=== PATIENT | female | born 1945 | race Hispanic/Latino ===

== ENCOUNTER 2017-08-09 01:00 | Emergency (ER) | payer OTHER, SELFPAY ==
[2017-08-09] MEDS ORDERED: NA CHLORIDE 0.9% 500 ML ONE (01:37)
[2017-08-09 02:03] LABS: Absolute Lymphocytes (CBC) 1.1 K/uL (0.7-4.9); Absolute Monocytes 0.5 K/uL (0.1-1.3); Absolute Neutrophil 15.7 K/uL (1.8-8.0); Basophils % 0.4 % (0-1.3); Eosinophils % 0.3 % (0-4.4); Lymphocytes % 6.4 % (15.3-44.8); MCH 28.6 pg (27.0-35.0); MCV 86.5 fL (80-100); MPV 9.1 fL (7.6-11.3); Monocytes % 2.7 % (3.3-12.3); RBC Red Blood Cell Count 4.74 M/uL (3.86-4.86)
[2017-08-09 02:04] LABS: Bicarbonate 24 mEq/L (21-31); Glucose Level 226 mg/dL (65-120); Potassium 3.8 mEq/L (3.6-5.0); Sodium Level 134 mEq/L (135-145)
[2017-08-09 02:05] LABS: BUN Blood Urea Nitrogen 23 mg/dL (6-20)
[2017-08-09 03:29] LABS: Urine Blood TRACE (NEG); Urine Glucose 1+ (NEG); Urine Protein NEGATIVE (NEG); Urine pH 5.5 (5.0-7.0)
[2017-08-09 03:33] LABS: Urine Bacteria <20 /HPF (<20); Urine Culture Reflex Order REFLEXED; Urine RBC <5 /HPF (NONE SEEN)
[2017-08-09 03:35] LABS: Blood Morphology Comment NOT SEEN (NOT SEEN); Platelet Estimate ADEQ
--- NOTE | 2017-08-09 05:30 | ER ---
Nurse's Notes [facility] Name: Mariia Egan Age: 71 yrs Sex: Female : 1945 Arrival Date: 08/09/2017 Time: 01:00 Bed 19 Private MD: Diagnosis: Hypertension;Proctitis/Colitis Presentation: 08/09 01:10 Presenting complaint: Patient states: She started feeling weak about an hour ago, ea reports she took her blood pressure at home and noticed it was 197/ 90 and then started to get a headache, pt reports her blood sugar was high as well. Patient reports she took her lovastatin, lisinopril and metformin before coming to the ER. Transition of care: patient was not received from another setting of care. Onset of symptoms was August 09, 2017. Initial Sepsis Screen: Does the patient meet any 2 criteria? HR > 90 bpm. Does the patient have a suspected source of infection? No. Patient's initial sepsis screen is negative. Care prior to arrival: Medication(s) given: pt reports taking metformin, lovastatin and lisinopril. 01:10 Method Of Arrival: Wheelchair ea 01:10 Acuity: JUAN 3 ea Triage Assessment: 01:22 General: Appears uncomfortable, Behavior is cooperative, anxious. Pain: Complains of ea pain in headache neck Pain currently is 6 out of 10 on a pain scale. Is intermittent. EENT: No signs and/or symptoms were reported regarding the EENT system. Neuro: Level of Consciousness is awake, alert, obeys commands, Oriented to person, place, time, situation. Cardiovascular: Heart tones S1 S2 present. Respiratory: Airway is patent Respiratory effort is even, unlabored, Respiratory pattern is regular, symmetrical, Breath sounds are clear bilaterally. GI: Abdomen is non-distended. GI: No signs and/or symptoms were reported involving the gastrointestinal system. : No signs and/or symptoms were reported regarding the genitourinary system. Derm: Skin is pink, warm \T\ dry. Historical: - Allergies: : No Known Allergies; ea - Home Meds: :20 lisinopril 5 mg Oral tab 1 tab once daily [Active]; lovastatin 10 mg Oral tab 1 tab ea once daily [Active]; metformin 500 mg Oral tab 1 tab [Active]; - PMHx: 01:20 cervical cancer; Diabetes - NIDDM; Hyperlipidemia; Hypertension; ea - PSHx: 01:20 None; ea - Immunization history:: Adult Immunizations up to date. - Social history:: Smoking status: Patient/guardian denies using tobacco. - Family history:: not pertinent. - Hospitalizations: : No recent hospitalization is reported. Screenin:25 Abuse screen: Denies threats or abuse. Nutritional screening: No deficits noted. ea Tuberculosis screening: No symptoms or risk factors identified. Fall Risk None identified. Assessment: 01:50 Reassessment: Pt taken to CT. ea 02:24 Reassessment: Patient and/or family updated on plan of care and expected duration. Pain ea level reassessed. Patient is alert, oriented x 3, equal unlabored respirations, skin warm/dry/pink. 03:23 Reassessment: Patient and/or family updated on plan of care and expected duration. Pain ea level reassessed. Patient is alert, oriented x 3, equal unlabored respirations, skin warm/dry/pink. 04:07 Reassessment: Pt taken to CT. ea 04:43 Reassessment: Patient and/or family updated on plan of care and expected duration. Pain ea level reassessed. Patient is alert, oriented x 3, equal unlabored respirations, skin warm/dry/pink. 05:26 Reassessment: Patient and/or family updated on plan of care and expected duration. Pain ea level reassessed. Patient is alert, oriented x 3, equal unlabored respirations, skin warm/dry/pink. Patient denies pain at this time. Patient states feeling better. 05:39 Reassessment: pt informed that it will take about 1 hour for IV antibiotic infusion to ak1 complete before being discharged. will continue to monitor. . 06:50 Reassessment: Patient and/or family updated on plan of care and expected duration. Pain ea level reassessed. Patient is alert, oriented x 3, equal unlabored respirations, skin warm/dry/pink. Discharge instructions given to patient, verbalized the understanding of instruction. Patient denies pain at this time. Patient states feeling better. Vital Signs: 01:10 BP 176 / 68; Pulse 122; Resp 18 S; Temp 99.8; Pulse Ox 97% on R/A; Weight 57.15 kg; ea Height 5 ft. (152.40 cm); Pain 0/10; 02:23 BP 108 / 63; Pulse 81; Resp 18; Pulse Ox 100% on R/A; ea 03:24 BP 130 / 58; Pulse 78; Resp 18 S; Pulse Ox 99% on R/A; ea 04:52 BP 123 / 54; Pulse 100; Resp 18 S; Temp 98.9(O); Pulse Ox 96% on R/A; ea 05:59 BP 107 / 58; Pulse 96; Resp 18; Pulse Ox 97% on R/A; ea 01:10 Body Mass Index 24.61 (57.15 kg, 152.40 cm) ea ED Course: 01:00 Patient arrived in ED. ds1 01:10 Fabien Murphy MD is Attending Physician. rn 01:14 Cari Leslie RN is Primary Nurse. ea 01:19 Triage completed. ea 01:25 Patient has correct armband on for positive identification. Bed in low position. Call ea light in reach. Side rails up X 1. 01:25 Arm band placed on right wrist. Patient placed in an exam room, on a stretcher, on ea pulse oximetry. 01:38 X-ray completed. Portable x-ray completed in exam room. Patient tolerated procedure kw well. 01:39 XRAY Chest (1 view) In Process Unspecified. EDMS 02:12 CT Head Brain wo Cont In Process Unspecified. EDMS 04:25 CT Abd/Pelvis - W/Contrast In Process Unspecified. EDMS 06:51 No provider procedures requiring assistance completed. IV discontinued, intact, ea bleeding controlled, No redness/swelling at site. Pressure dressing applied. Administered Medications: 01:40 Drug: NS 0.9% 500 ml Route: IV; Rate: bolus; Site: right antecubital; ea 02:30 Follow up: Response: No adverse reaction; IV Status: Completed infusion ea 05:39 Drug: Cipro 400 mg Volume: 200 ml; Route: IVPB; Infused Over: 60 mins; Site: right ak1 antecubital; 06:45 Follow up: Response: No adverse reaction; IV Status: Completed infusion ea 05:39 Drug: Flagyl 500 mg Volume: 100 ml; Route: IVPB; Rate: 200 ml/hr; Infused Over: 30 ak1 mins; Site: right antecubital; 06:36 Follow up: IV Status: Completed infusion ak1 06:45 Follow up: Response: No adverse reaction; IV Status: Completed infusion ea Point of Care Testing: Blood Glucose: 02:21 Blood Glucose: 208 mg/dL; ea 02:21 Pt reports her blood sugar at home was 297 ea Ranges: Outcome: 05:30 Discharge ordered by . rn 06:51 Discharged to home ambulatory, with family. ea 06:51 Condition: improved 06:51 Discharge instructions given to patient, Instructed on discharge instructions, follow up and referral plans. medication usage, Demonstrated understanding of instructions, follow-up care, medications, Prescriptions given X 2. 06:53 Patient left the ED. ea Addendum: 08/12/2017 14:59 Addendum: Culture Results: Positive urine culture. Patient was not prescribed i w antibiotics at discharge. Report given to FIDEL for further evaluation and then to culinary artist for follow up with patient. Phone call Attempt #1 pt did not answer, left voice mail. 08/13/2017 08:50 Addendum: Other pt called back, feeling better, no urinary symptoms. i w Signatures: Dispatcher Ondax [facility] MoeGeraldine dye ds1 Cesilia Jordan, RN ARIADNE Fabien Murphy MD MD rn Whitley, Kimberlee kw Krenek, Amber, RN RN ak1 Cari Leslie RN RN ea Corrections: (The following items were deleted from the chart) 08/09 05:26 05:26 Reassessment: Patient and/or family updated on plan of care and expected ea duration. Pain level reassessed. Patient is alert, oriented x 3, equal unlabored respirations, skin warm/dry/pink. Mother remains at bedside. ea
--- NOTE | 2017-08-09 05:30 | EDPHYS ---
Physician Documentation [facility] Name: Mariia Egan Age: 71 yrs Sex: Female : 1945 Arrival Date: 08/09/2017 Time: 01:00 Bed 19 Private MD: ED Physician Fabien Murphy HPI: 08/09 01:23 This 71 yrs old Female presents to ER via Wheelchair with complaints of High rn Blood Pressure. 01:23 The patient has elevated blood pressure and discovered this at home. Onset: The rn symptoms/episode began/occurred just prior to arrival. Associated signs and symptoms: Pertinent positives: headache, lightheadedness. Severity of symptoms: At its worst the blood pressure was moderate, in the emergency department the blood pressure is improved. The patient has experienced similar episodes in the past. Reports high blood pressure, states was feeling weak, checked BP was high, made her anxious because BP was high, took extra lisinopril, had a headache begin, then BP didn't improve after 30 min so came in here. Denies current headache, vision changes, chest pain/sob/abd pain/vomiting/diarrhea. . Historical: - Allergies: :30 No Known Allergies; ea - Home Meds: 01:20 lisinopril 5 mg Oral tab 1 tab once daily [Active]; lovastatin 10 mg Oral tab 1 tab ea once daily [Active]; metformin 500 mg Oral tab 1 tab [Active]; - PMHx: 01:20 cervical cancer; Diabetes - NIDDM; Hyperlipidemia; Hypertension; ea - PSHx: 01:20 None; ea - Immunization history:: Adult Immunizations up to date. - Social history:: Smoking status: Patient/guardian denies using tobacco. - Family history:: not pertinent. - Hospitalizations: : No recent hospitalization is reported. ROS: 01:23 Constitutional: Negative for fever, chills, and weight loss, Eyes: Negative for injury, rn pain, redness, and discharge, Neck: Negative for injury, pain, and swelling, Cardiovascular: Negative for chest pain, palpitations, and edema, Respiratory: Negative for shortness of breath, cough, wheezing, and pleuritic chest pain, Abdomen/GI: Negative for abdominal pain, nausea, vomiting, diarrhea, and constipation, Back: Negative for injury and pain, MS/Extremity: Negative for injury and deformity, Skin: Negative for injury, rash, and discoloration, Neuro: Negative for numbness, tingling, and seizure. Exam: 01:23 Constitutional: This is a well developed, well nourished patient who is awake, alert, rn very anxious Head/Face: Normocephalic, atraumatic. Eyes: Pupils equal round and reactive to light, extra-ocular motions intact. Lids and lashes normal. Conjunctiva and sclera are non-icteric and not injected. Cornea within normal limits. Periorbital areas with no swelling, redness, or edema. Neck: Trachea midline, no thyromegaly or masses palpated, and no cervical lymphadenopathy. Supple, full range of motion without nuchal rigidity, or vertebral point tenderness. No Meningismus. Cardiovascular: tachycardic, regular, no murmur Respiratory: Lungs have equal breath sounds bilaterally, clear to auscultation and percussion. No rales, rhonchi or wheezes noted. No increased work of breathing, no retractions or nasal flaring. Abdomen/GI: Soft, non-tender, with normal bowel sounds. No distension or tympany. No guarding or rebound. No evidence of tenderness throughout. MS/ Extremity: Pulses equal, no cyanosis. Neurovascular intact. Full, normal range of motion. Equal circumference. Neuro: Awake and alert, GCS 15, oriented to person, place, time, and situation. Cranial nerves II-XII grossly intact. Motor strength 5/5 in all extremities. Sensory grossly intact. Vital Signs: 01:10 BP 176 / 68; Pulse 122; Resp 18 S; Temp 99.8; Pulse Ox 97% on R/A; Weight 57.15 kg; ea Height 5 ft. (152.40 cm); Pain 0/10; 02:23 BP 108 / 63; Pulse 81; Resp 18; Pulse Ox 100% on R/A; ea 03:24 BP 130 / 58; Pulse 78; Resp 18 S; Pulse Ox 99% on R/A; ea 04:52 BP 123 / 54; Pulse 100; Resp 18 S; Temp 98.9(O); Pulse Ox 96% on R/A; ea 05:59 BP 107 / 58; Pulse 96; Resp 18; Pulse Ox 97% on R/A; ea 01:10 Body Mass Index 24.61 (57.15 kg, 152.40 cm) ea MDM: 01:11 Patient medically screened. rn 05:29 Differential diagnosis: hypertensive crisis, Malignant HTN. Data reviewed: vital signs, rn nurses notes, lab test result(s), radiologic studies, CT scan, and as a result, I will discharge patient. Counseling: I had a detailed discussion with the patient and/or guardian regarding: the historical points, exam findings, and any diagnostic results supporting the discharge/admit diagnosis, lab results, radiology results, the need for outpatient follow up, to return to the emergency department if symptoms worsen or persist or if there are any questions or concerns that arise at home. Response to treatment: the patient's symptoms have markedly improved after treatment, and as a result, I will discharge patient. Special discussion: Based on the patient's Hx, exam, and Dx evaluation, there is no indication for emergent surgery or inpatient Tx. It is understood by the patient/guardian that if the Sx's persist or worsen they need to return immediately for re-evaluation. I discussed with the patient/guardian in detail that at this point there is no indication for admission to the hospital. It is understood, however, that if the symptoms persist or worsen the patient needs to return immediately for re-evaluation. 08/09 01:22 Order name: CBC with Diff; Complete Time: : rn 08/09 01:22 Order name: Basic Metabolic Panel; Complete Time: 02: rn 08/09 01:22 Order name: Troponin (emerg Dept Use Only); Complete Time: 02: rn 08/09 01:29 Order name: Procalcitonin; Complete Time: : rn 08/09 01:29 Order name: Urine Microscopic Only; Complete Time: 05: rn 08/09 02:14 Order name: Urine Dipstick--Ancillary (enter results); Complete Time: : rg2 08/09 01:22 Order name: CT Head Brain wo Cont rn 08/09 01:23 Order name: XRAY Chest (1 view) rn 08/09 02:17 Order name: Manual Differential; Complete Time: EDMS 08/09 02:26 Order name: CT Abd/Pelvis - W/Contrast rn 08/09 03:34 Order name: Urine Culture EDCO 08/09 01:22 Order name: IV Start; Complete Time: 01:50 rn 08/09 01:22 Order name: EKG; Complete Time: 01:23 rn 08/09 01:22 Order name: EKG - Nurse/Tech; Complete Time: 01:54 rn 08/09 01:23 Order name: Urine Dipstick-Ancillary (obtain specimen); Complete Time: 02:13 rn 08/09 01:29 Order name: Glucose Level; Complete Time: 02:22 rn Administered Medications: 01:40 Drug: NS 0.9% 500 ml Route: IV; Rate: bolus; Site: right antecubital; ea 02:30 Follow up: Response: No adverse reaction; IV Status: Completed infusion ea 05:39 Drug: Cipro 400 mg Volume: 200 ml; Route: IVPB; Infused Over: 60 mins; Site: right ak1 antecubital; 06:45 Follow up: Response: No adverse reaction; IV Status: Completed infusion ea 05:39 Drug: Flagyl 500 mg Volume: 100 ml; Route: IVPB; Rate: 200 ml/hr; Infused Over: 30 ak1 mins; Site: right antecubital; 06:36 Follow up: IV Status: Completed infusion ak1 06:45 Follow up: Response: No adverse reaction; IV Status: Completed infusion ea Point of Care Testing: Blood Glucose: 02:21 Blood Glucose: 208 mg/dL; ea 02:21 Pt reports her blood sugar at home was 297 ea Ranges: Critical Glucose Levels:Adult <50 mg/dl or >400 mg/dl <40 mg/dl or >180 mg/dl Disposition: 08/09/17 05:30 Discharged to Home. Impression: Hypertension, Proctitis/Colitis. - Condition is Stable. - Discharge Instructions: Hypertension, Proctitis. - Prescriptions for Cipro 500 mg Oral Tablet - take 1 tablet by ORAL route every 12 hours for 10 days; 20 tablet. Flagyl 500 mg Oral Tablet - take 1 tablet by ORAL route every 8 hours for 10 days; 30 tablet. - Medication Reconciliation Form, Thank You Letter, Antibiotic Education, Prescription Opioid Use form. - Follow up: Private Physician; When: As needed; Reason: Recheck today's complaints, Re-evaluation by your physician. - Problem is new. - Symptoms have improved. Signatures: Dispatcher [employer] EDFabien Whittington MD MD rn Krenek, Amber, RN RN ak1 Cari Leslie RN ARIADNE ea Corrections: (The following items were deleted from the chart) 06:53 05:30 08/09/2017 05:30 Discharged to Home. Impression: Hypertension; Proctitis/Colitis. ea Condition is Stable. Forms are Medication Reconciliation Form, Thank You Letter, Antibiotic Education, Prescription Opioid Use. Follow up: Private Physician; When: As needed; Reason: Recheck today's complaints, Re-evaluation by your physician. Problem is new. Symptoms have improved. rn
[2017-08-09] MEDS ORDERED: CIPROFLOXACIN 400mg IV 400 MG/200 ML BAG IV ONE (05:32)
[2017-08-09] MEDS ORDERED: METRONIDAZOLE 500mg IVPB 500 MG/100 ML BAG IV ONE (05:32)
[2017-08-09 07:01] VITALS: TEMP 98.9
[2017-08-09 07:02] VITALS: BP 107/58; O2SAT 97
--- NOTE | 2017-08-09 07:15 | EKG ---
Test Date: 2017-08-09 Test Time: 01:44:50 Superintendent Stations: HEVER MEASUREMENT RESULTS: Intervals: Rate: 110 [place]: 152 QRSD: 88 QT: 356 QTc: 481 [place]: P: 63 [place]: 152 QRS: 0 T: 58 INTERPRETIVE STATEMENTS: Sinus tachycardia Otherwise normal ECG Compared to ECG 07/20/2016 06:32:22 Sinus rhythm no longer present Electronically Signed On 08-09-17 07:14:16 CDT by Roger Perez
--- NOTE | 2017-08-09 08:39 | RAD REPORT ---
EXAM DESCRIPTION: RAD - Chest Single View - 08/09/2017 1:39 am CLINICAL HISTORY: Palpitations, hypertension COMPARISON: July 19, 2016 TECHNIQUE: AP portable chest image was obtained 0133 hours . FINDINGS: Lungs are clear. Heart and vasculature are normal. No measurable pleural effusion and no p neumothorax. No gross bony abnormality seen. No acute aortic findings suspected. IMPRESSION: No acute cardiopulmonary process. No significant interval change.
--- NOTE | 2017-08-09 08:40 | RAD REPORT ---
EXAM DESCRIPTION: CT - Head Brain Wo Cont - 08/09/2017 7:01 am CLINICAL HISTORY: Headache, hypertension A preliminary written report was provided at the time of the study, and the report was reviewed prio r to final dictation. COMPARISON: CT head April 2016 TECHNIQUE: Axial 5 mm thick images of the head were obtained without IV contrast. All CT scans are performed using dose optimization technique as appropriate and may include automated exposure control or mA/KV adjustment according to patient size. FINDINGS: No intracranial hemorrhage, mass, edema or shift of mid-line structures. No acute infarcti on changes seen. No abnormal extra-axial fluid collections. Ventricles are normal. Mastoid air cells and visualized portions of the paranasal sinuses are clear. No acute bony findings. IMPRESSION: Negative non-contrast CT head examination. No significant change from comparison.
--- NOTE | 2017-08-09 09:30 | RAD REPORT ---
EXAM DESCRIPTION: CT - Abdomen Pelvis W Contrast - 08/09/2017 7:04 am CLINICAL HISTORY: Lower abdominal pain, elevated white count A preliminary written report was provided at the time of the study, and the report was reviewed prio r to final dictation. COMPARISON: CT study December 2015 and July 2016 TECHNIQUE: Biphasic, helical CT imaging of the abdomen and pelvis was performed following 100 ml non -ionic IV contrast. Oral contrast was given. All CT scans are performed using dose optimization technique as appropriate and may include automated exposure control or mA/KV adjustment according to patient size. FINDINGS: No suspicious findings in the lung bases. The liver, spleen, and pancreas show no suspicious findings. Small ill-defined low-density area in th e posterior right lobe (image 12/84) has not change from 1 year earlier. Liver attenuation is borderl ine but not definitive for fatty infiltration. No gallbladder or biliary tree abnormality. Gallstones can be occult on CT imaging. Symmetric renal function is seen with no hydronephrosis or suspicious renal mass. No pyelonephritis o r acute renal parenchymal process. No adrenal abnormality. Urinary bladder is contracted limiting ass essment. No bladder calculus. A 4.8 centimeter round low-density mass is present in the left lateral mid to lower uterus. This has the appearance of a fibroid and is not clearly changed from 1 year julianna ier. No other discrete myometrial mass identifiable. No ovarian abnormality seen. Numerous surgical c lips or metallic artifacts are present in the deep vaginal vault near the cervix. This is presumed to be from a surgical procedure not otherwise specified. No gastric dilatation or gastric wall thickening. No acute small bowel finding seen. There is no appe ndicitis. From the tip of the cecum through the proximal rectum there is no acute colon process seen. Soto of the distal rectum are prominent. There does appear to be some stranding in the perirectal f at. No free air, free fluid or pneumatosis. No hernia, mass or bulky lymphadenopathy. The urinary b ladder is without significant finding. No adrenal abnormality. No suspicious bony findings. IMPRESSION: No appendicitis, bowel obstruction or surgically emergent finding. Circumferential wall thickening of the distal rectum with stranding in the perirectal fat. Correlatio n is needed with any colitis or proctitis findings. Approximately 4.8 centimeter left lateral uterine mass presumed to be a fibroid. This is stable from 1 year earlier. Numerous clips are seen near the vaginal vault cervix junction. This is presumed to b e from a prior surgical procedure.
== END 2017-08-09 06:53 | disposition home or self-care (01) ==
LOC: ER 01:00
DX: I10 Essential (primary) hypertension (principal); K52.9 Noninfective gastroenteritis and colitis, unspecified; K62.89 Other specified diseases of anus and rectum; E11.9 Type 2 diabetes mellitus without complications; E78.5 Hyperlipidemia, unspecified; Z85.41 Personal history of malignant neoplasm of cervix uteri
CPT/HCPCS: 36415; 70450; 71045; 74177; 80048; 81003; 81015; 82962; 84145; 84484; 85025; 87077; 87086; 87088; 87186; 93005; 96361; 96365; 96368; 99284; J0744; Q9967

== ENCOUNTER 2017-12-15 10:06 | Emergency (ER) | payer OTHER ==
--- NOTE | 2017-12-15 11:02 | RAD REPORT ---
EXAM DESCRIPTION: RAD - Chest Single View - 12/15/2017 10:57 am CLINICAL HISTORY: PAIN Chest pain. COMPARISON: Chest Single View dated 08/09/2017; Chest Single View dated 07/19/2016; Chest Single View d ated 05/03/2016; Chest Single View dated 01/04/2016 FINDINGS: Portable technique limits examination quality. The lungs are grossly clear. The heart is normal in size. No displaced fractures. IMPRESSION: No acute intrathoracic process suspected.
[2017-12-15 11:20] LABS: ALT/SGPT 37 U/L (12-78); AST/SGOT 14 U/L (15-37); Albumin 3.8 g/dL (3.4-5.0); Alkaline Phosphatase 51 U/L (45-117); Amylase Level 67 U/L (25-115); BUN Blood Urea Nitrogen 17 mg/dL (7-18); Bicarbonate 28 mmol/L (21-32); Bilirubin Direct 0.2 mg/dL (0-0.2); Bilirubin Total 0.4 mg/dL (0.2-1.0); Glucose Level 171 mg/dL (74-106); Lipase 255 U/L (73-393); Potassium 3.8 mmol/L (3.5-5.1); Protein, Total 7.4 g/dL (6.4-8.2); Sodium Level 141 mmol/L (136-145); Troponin (Emerg Dept Use Only) < 0.02 ng/mL (0.0-0.045)
[2017-12-15 11:42] LABS: Absolute Lymphocytes (CBC) 1.3 K/uL (0.7-4.9); Absolute Monocytes 0.4 K/uL (0.1-1.3); Absolute Neutrophil 3.6 K/uL (1.8-8.0); Basophils % 0.8 % (0-1.3); Eosinophils % 1.6 % (0-4.4); Hematocrit 39.7 % (36.0-45.0); Lymphocytes % 23.5 % (15.3-44.8); MCH 29.8 pg (27.0-35.0); MCV 86.5 fL (80-100); MPV 8.7 fL (7.6-11.3); Monocytes % 7.4 % (3.3-12.3); RBC Red Blood Cell Count 4.59 M/uL (3.86-4.86)
--- NOTE | 2017-12-15 12:37 | RAD REPORT ---
EXAM DESCRIPTION: CTAbdomen Pelvis W Contrast - 12/15/2017 11:46 am CLINICAL HISTORY: Abdominal pain. IV contrast only;Abd pain COMPARISON: Abdomen Pelvis W Contrast dated 08/09/2017; Abdomen Pelvis W Contrast dated 01/04/2016 ; Chest Abdomen Pelvis W Cont dated 07/20/2016 TECHNIQUE: Biphasic CT imaging of the abdomen and pelvis was performed with 100 ml non-ionic IV cont rast. All CT scans are performed using dose optimization technique as appropriate and may include automated exposure control or mA/KV adjustment according to patient size. FINDINGS: The lung bases are clear. Small enhancing lesion in the right lobe of the liver appears unchanged. No new or enlarging liver le rubina or intrahepatic biliary dilatation. The spleen, pancreas, adrenal glands and kidneys are normal. No bowel obstruction, free air, intra-abdominal free fluid or abscess. The appendix is normal. No e vidence of significant lymphadenopathy. Trace pelvic free fluid is seen with enlarged multifibroid uterus 8.0 x 6.4 cm, previously 7.3 x 6.2 cm. IMPRESSION: No acute intra-abdominal or pelvic finding.
[2017-12-15] MEDS ORDERED: PANTOPRAZOLE 40 MG INJ ONE (12:39)
--- NOTE | 2017-12-15 13:18 | EDPHYS ---
Physician Documentation [facility] Name: Mariia Egan Age: 72 yrs Sex: Female : 1945 Arrival Date: 12/15/2017 Time: 10:09 Bed 20 Private MD: ED Physician Juan Metzger HPI: 12/15 11:53 This 72 yrs old Female presents to ER via Ambulatory with complaints of kb Abdominal Pain, Cough, Breathing Difficulty. 11:53 The patient presents with abdominal pain in the epigastric area. Onset: The kb symptoms/episode began/occurred 4 day(s) ago. The symptoms do not radiate. Associated signs and symptoms: none. The symptoms are described as constant. Modifying factors: The symptoms are alleviated by nothing, the symptoms are aggravated by pressure. Severity of pain: At its worst the pain was moderate in the emergency department the pain is unchanged. The patient has not experienced similar symptoms in the past. The patient has not recently seen a physician. Historical: - Allergies: 10:29 No Known Allergies; aa5 - PMHx: 10:29 cervical cancer; Diabetes - NIDDM; Hyperlipidemia; Hypertension; aa5 - PSHx: 10:29 None; aa5 - Immunization history:: Adult Immunizations up to date. - Social history:: Smoking status: Patient/guardian denies using tobacco. - Ebola Screening: : No symptoms or risks identified at this time. ROS: 11:52 Constitutional: Negative for fever, chills, and weight loss, ENT: Negative for injury, kb pain, and discharge, Neck: Negative for injury, pain, and swelling, Cardiovascular: Negative for chest pain, palpitations, and edema, Respiratory: Negative for shortness of breath, cough, wheezing, and pleuritic chest pain, Back: Negative for injury and pain, : Negative for injury, bleeding, discharge, and swelling, MS/Extremity: Negative for injury and deformity, Skin: Negative for injury, rash, and discoloration, Neuro: Negative for headache, weakness, numbness, tingling, and seizure. 11:52 Abdomen/GI: Positive for abdominal pain, Negative for nausea, vomiting, and diarrhea, constipation, abdominal cramps, abdominal distension, anorexia. Exam: 11:37 Constitutional: This is a well developed, well nourished patient who is awake, alert, kb and in no acute distress. Head/Face: Normocephalic, atraumatic. Chest/axilla: Normal chest wall appearance and motion. Nontender with no deformity. No lesions are appreciated. Cardiovascular: Regular rate and rhythm with a normal S1 and S2. No gallops, murmurs, or rubs. Normal PMI, no JVD. No pulse deficits. Respiratory: Lungs have equal breath sounds bilaterally, clear to auscultation and percussion. No rales, rhonchi or wheezes noted. No increased work of breathing, no retractions or nasal flaring. 11:52 Constitutional: This is a well developed, well nourished patient who is awake, alert, kb and in no acute distress. Head/Face: Normocephalic, atraumatic. ENT: Nares patent. No nasal discharge, no septal abnormalities noted. Tympanic membranes are normal and external auditory canals are clear. Oropharynx with no redness, swelling, or masses, exudates, or evidence of obstruction, uvula midline. Mucous membranes moist. Neck: Trachea midline, no thyromegaly or masses palpated, and no cervical lymphadenopathy. Supple, full range of motion without nuchal rigidity, or vertebral point tenderness. No Meningismus. Chest/axilla: Normal chest wall appearance and motion. Nontender with no deformity. No lesions are appreciated. Cardiovascular: Regular rate and rhythm with a normal S1 and S2. No gallops, murmurs, or rubs. Normal PMI, no JVD. No pulse deficits. Respiratory: Lungs have equal breath sounds bilaterally, clear to auscultation and percussion. No rales, rhonchi or wheezes noted. No increased work of breathing, no retractions or nasal flaring. Back: No spinal tenderness. No costovertebral tenderness. Full range of motion. Skin: Warm, dry with normal turgor. Normal color with no rashes, no lesions, and no evidence of cellulitis. MS/ Extremity: Pulses equal, no cyanosis. Neurovascular intact. Full, normal range of motion. Neuro: Awake and alert, GCS 15, oriented to person, place, time, and situation. Cranial nerves II-XII grossly intact. Motor strength 5/5 in all extremities. Sensory grossly intact. Cerebellar exam normal. Normal gait. 11:52 Abdomen/GI: Inspection: abdomen appears normal, Bowel sounds: normal, in all quadrants, Palpation: mild abdominal tenderness, in the epigastric area, right upper quadrant and left upper quadrant. Vital Signs: 10:15 BP 142 / 71 LA; Pulse 84; Resp 16 S; Temp 98.2(O); Pulse Ox 100% on R/A; Weight 57.15 jl7 kg (R); Height 5 ft. 0 in. (152.40 cm) (R); Pain 0/10; 10:54 BP 153 / 74 RA; Pulse 73; Resp 16 S; Pulse Ox 96% on R/A; jl7 12:10 BP 137 / 64; Pulse 61; Resp 14; Pulse Ox 97% on R/A; jl7 13:00 BP 135 / 65; Pulse 62; Resp 16; Pulse Ox 100% ; jl7 14:04 BP 134 / 63; Pulse 60; Resp 16; Pulse Ox 100% on R/A; jl7 10:15 Body Mass Index 24.61 (57.15 kg, 152.40 cm) jl7 10:15 Pt reports pain only with movement jl7 MDM: 10:26 Patient medically screened. kb 11:37 Data reviewed: vital signs, nurses notes. Data interpreted: Pulse oximetry: on room air kb is 96 %. Interpretation: normal. 12:38 Counseling: I had a detailed discussion with the patient and/or guardian regarding: the kb historical points, exam findings, and any diagnostic results supporting the discharge/admit diagnosis, lab results, radiology results, the need for outpatient follow up, a family practitioner, to return to the emergency department if symptoms worsen or persist or if there are any questions or concerns that arise at home. 12/15 10:37 Order name: Amylase, Serum; Complete Time: 11:22 kb 12/15 10:37 Order name: Basic Metabolic Panel; Complete Time: 11:22 kb 12/15 10:37 Order name: CBC with Diff; Complete Time: 11:52 kb 12/15 10:37 Order name: Hepatic Function; Complete Time: 11: kb 12/15 10:37 Order name: Lipase; Complete Time: 11:22 kb 12/15 10:37 Order name: Troponin (emerg Dept Use Only); Complete Time: 11:22 kb 12/15 10:37 Order name: IV Saline Lock; Complete Time: 10:52 kb 12/15 10:37 Order name: Labs collected and sent; Complete Time: 10:52 kb 12/15 10:37 Order name: EKG; Complete Time: 10:37 kb 12/15 10:37 Order name: Chest Single View XRAY; Complete Time: 11:06 kb 12/15 10:59 Order name: Urine Dipstick--Ancillary (enter results) bd 12/15 11:00 Order name: Urine Dipstick-Ancillary; Complete Time: 13:48 EDMS 12/15 11:23 Order name: CT Abd/Pelvis - W/Contrast; Complete Time: 12:38 kb 12/15 10:37 Order name: Urine Dipstick-Ancillary (obtain specimen); Complete Time: 10:52 kb 12/15 10:37 Order name: EKG - Nurse/Tech; Complete Time: 10:51 kb 12/15 10:37 Order name: Bilateral blood pressure; Complete Time: 12:07 kb Administered Medications: 12:36 Drug: ProTONIX 40 mg Route: IVP; Site: right antecubital; jl7 13:00 Follow up: Response: No adverse reaction jl7 Disposition: 14:24 Co-signature as Attending Physician, Juan Metzger MD I agree with the assessment and juan alberto plan of care. Disposition: 12/15/17 13:17 Discharged to Home. Impression: Upper abdominal pain, unspecified. - Condition is Stable. - Discharge Instructions: Abdominal Pain, Adult, [id number]. - Medication Reconciliation Form, Thank You Letter, Antibiotic Education, Prescription Opioid Use form. - Follow up: Emergency Department; When: As needed; Reason: Worsening of condition. Follow up: Private Physician; When: 2 - 3 days; Reason: Recheck today's complaints, Continuance of care, Re-evaluation by your physician. Signatures: Dispatcher [employer] EDCA Joyce Sweet, PHARMACY TECHNICIAN INFUSION-C PHARMACY TECHNICIAN INFUSION-Juan Melendez MD MD cha Calderon, Audri, RN RN aa5 Damion Carroll RN RN jl7 Corrections: (The following items were deleted from the chart) 14:06 13:17 12/15/2017 13:17 Discharged to Home. Impression: Upper abdominal pain, jl7 unspecified. Condition is Stable. Discharge Instructions: Abdominal Pain, Adult, [id number]. Forms are Medication Reconciliation Form, Thank You Letter, Antibiotic Education, Prescription Opioid Use. Follow up: Emergency Department; When: As needed; Reason: Worsening of condition. Follow up: Private Physician; When: 2 - 3 days; Reason: Recheck today's complaints, Continuance of care, Re-evaluation by your physician. kb
--- NOTE | 2017-12-15 13:18 | ER ---
Nurse's Notes [facility] Name: Mariia Egan Age: 72 yrs Sex: Female : 1945 Arrival Date: 12/15/2017 Time: 10:09 Bed 20 Private MD: Diagnosis: Upper abdominal pain, unspecified Presentation: 12/15 10:15 Presenting complaint: Patient states: epigastric pain that is described as intermittent aa5 and described as squeezing since Wednesday. Pt denies N/V. 10:15 Transition of care: patient was not received from another setting of care. Onset of aa5 symptoms was December 2017. Risk Assessment: Do you want to hurt yourself or someone else? Patient reports no desire to harm self or others. Initial Sepsis Screen: Does the patient meet any 2 criteria? No. Patient's initial sepsis screen is negative. Does the patient have a suspected source of infection? No. Patient's initial sepsis screen is negative. Care prior to arrival: None. 10:15 Method Of Arrival: Ambulatory aa5 10:15 Acuity: JUAN 3 aa5 Historical: - Allergies: 10:29 No Known Allergies; aa5 - PMHx: 10:29 cervical cancer; Diabetes - NIDDM; Hyperlipidemia; Hypertension; aa5 - PSHx: 10:29 None; aa5 - Immunization history:: Adult Immunizations up to date. - Social history:: Smoking status: Patient/guardian denies using tobacco. - Ebola Screening: : No symptoms or risks identified at this time. Screenin:53 Abuse screen: Denies threats or abuse. Denies injuries from another. Nutritional jl7 screening: No deficits noted. Tuberculosis screening: No symptoms or risk factors identified. Fall Risk IV access (20 points). Total Belle Fall Scale indicates No Risk (0-24 pts). Assessment: 10:35 General: Appears in no apparent distress. uncomfortable, Behavior is calm, cooperative, jl7 appropriate for age. Pain: Complains of pain in epigastric area Pain does not radiate. Pain currently is 0 out of 10 on a pain scale. at worst was 7 out of 10 on a pain scale. Quality of pain is described as squeezing, Is intermittent. Neuro: Level of Consciousness is awake, alert, obeys commands, Oriented to person, place, time, situation. Cardiovascular: Heart tones S1 S2 present Patient's skin is warm and dry. Respiratory: Airway is patent Respiratory effort is even, unlabored, Respiratory pattern is regular, symmetrical, Breath sounds are clear bilaterally. GI: Bowel sounds present X 4 quads. Abd is soft and non tender. : No signs and/or symptoms were reported regarding the genitourinary system. EENT: No signs and/or symptoms were reported regarding the EENT system. Derm: No signs and/or symptoms reported regarding the dermatologic system. Musculoskeletal: No signs and/or symptoms reported regarding the musculoskeletal system. 12:00 Reassessment: Patient appears in no apparent distress at this time. Patient and/or jl7 family updated on plan of care and expected duration. Pain level reassessed. Patient is alert, oriented x 3, equal unlabored respirations, skin warm/dry/pink. 13:00 Reassessment: No changes from previously documented assessment. Patient and/or family jl7 updated on plan of care and expected duration. Pain level reassessed. Patient is alert, oriented x 3, equal unlabored respirations, skin warm/dry/pink. Vital Signs: 10:15 BP 142 / 71 LA; Pulse 84; Resp 16 S; Temp 98.2(O); Pulse Ox 100% on R/A; Weight 57.15 jl7 kg (R); Height 5 ft. 0 in. (152.40 cm) (R); Pain 0/10; 10:54 BP 153 / 74 RA; Pulse 73; Resp 16 S; Pulse Ox 96% on R/A; jl7 12:10 BP 137 / 64; Pulse 61; Resp 14; Pulse Ox 97% on R/A; jl7 13:00 BP 135 / 65; Pulse 62; Resp 16; Pulse Ox 100% ; jl7 14:04 BP 134 / 63; Pulse 60; Resp 16; Pulse Ox 100% on R/A; jl7 10:15 Body Mass Index 24.61 (57.15 kg, 152.40 cm) jl7 10:15 Pt reports pain only with movement jl7 ED Course: 10:09 Patient arrived in ED. mr 10:10 Arm band placed on Patient placed in an exam room, on a stretcher. aa5 10:26 Joyce Sweet FNP-C is PHCP. kb 10:26 Juan Metzger MD is Attending Physician. kb 10:29 Triage completed. aa5 10:38 EKG done, by electro mechanical technician. reviewed by Juan Metzger MD. at1 10:39 Damion Carroll, RN is Primary Nurse. jl7 10:53 Patient has correct armband on for positive identification. Placed in gown. Bed in low jl7 position. Call light in reach. Side rails up X 1. Pulse ox on. NIBP on. 10:53 Initial lab(s) drawn, by me, sent to lab. Urine collected: clean catch specimen, clear. jl7 Inserted saline lock: 20 gauge in right antecubital area, using aseptic technique. Blood collected. 10:56 X-ray completed. Portable x-ray completed in exam room. Patient tolerated procedure la2 well. 10:58 Chest Single View XRAY In Process Unspecified. EDMS 11:45 CT Abd/Pelvis - W/Contrast In Process Unspecified. EDMS 14:04 No provider procedures requiring assistance completed. IV discontinued, intact, jl7 bleeding controlled, No redness/swelling at site. Pressure dressing applied. Administered Medications: 12:36 Drug: ProTONIX 40 mg Route: IVP; Site: right antecubital; jl7 13:00 Follow up: Response: No adverse reaction jl7 Outcome: 13:17 Discharge ordered by MD. kb 14:04 Discharged to home ambulatory. jl7 14:04 Condition: stable 14:04 Discharge instructions given to patient, Instructed on discharge instructions, follow up and referral plans. medication usage, Demonstrated understanding of instructions, follow-up care, medications. 14:06 Patient left the ED. jl7 Signatures: Dispatcher [employer] EDMS Joyce Sweet, DEAN OF STUDENTS-C DEAN OF STUDENTS-Amy Grigsby mr ChavezJessy, RN RN aa5 Mallorie Mora, customer support analyst EKG Tat1 Damion Carroll, RN RN jl7 Trina Coleman la2 Corrections: (The following items were deleted from the chart) 10:30 10:29 BP 142 / 71; Pulse 84bpm; Resp 16bpm; Spontaneous; Pulse Ox 100% RA; Temp 98.2F aa5 Oral; 57.15 kg Reported; Height 5 ft. 0 in. Reported; BMI: 24.6; Pain 0/10; Pt reports pain only with movement ; aa5 10:55 10:15 BP 142 / 71; Pulse 84bpm; Resp 16bpm; Spontaneous; Pulse Ox 100% RA; Temp 98.2F jl7 Oral; 57.15 kg Reported; Height 5 ft. 0 in. Reported; BMI: 24.6; Pain 0/10; Pt reports pain only with movement ; aa5
[2017-12-15 13:46] LABS: Urine Blood NEGATIVE (NEG); Urine Glucose NEGATIVE (NEG); Urine Protein NEGATIVE (NEG); Urine pH 5.5 (5.0-7.0)
[2017-12-15 14:11] VITALS: TEMP 98.2
[2017-12-15 14:15] VITALS: O2SAT 100
[2017-12-15 14:16] VITALS: BP 134/63
--- NOTE | 2017-12-15 17:52 | EKG ---
Test Date: 2017-12-15 Test Time: 10:30:44 Sawing And Assembly Supervisor: BRYAN MEASUREMENT RESULTS: Intervals: Rate: 69 WI: 142 QRSD: 84 QT: 408 QTc: 437 [place]: P: 71 WI: 142 QRS: 21 T: 53 INTERPRETIVE STATEMENTS: Normal sinus rhythm Normal ECG Compared to ECG 08/09/2017 01:44:50 Sinus tachycardia no longer present Electronically Signed On 12-15-17 17:50:47 CDT by Michael Slade
== END 2017-12-15 14:06 | disposition home or self-care (01) ==
LOC: ER 10:06
DX: R10.13 Epigastric pain (principal); I10 Essential (primary) hypertension; Z85.41 Personal history of malignant neoplasm of cervix uteri
CPT/HCPCS: 36415; 71045; 74177; 80048; 80076; 81003; 82150; 83690; 84484; 85025; 93005; C9113; Q9967; 96374; 99284

== ENCOUNTER 2022-09-14 12:05 | Emergency (ER) | payer BC, OTHER ==
--- OUTSIDE RECORDS SUMMARY | 2022-09-14 12:10 | XMS REPORT | Continuity of Care Document ---
:1945 Author Organization [facility] t Address [address] [place] [address] [address] [place] [address] Care Team Providers Name Role Phone [phone] Primary Care Physician Unavailable Gio Amaro Attending Clinician Unavailable Rosita Caballero Attending Clinician Unavailable 2, [facility] Attending Clinician Unavailable Azam Lerner MD Attending Clinician AZAM LERNER Attending Clinician Unavailable Doctor Unassigned, [place] Attending Clinician Unavailable Mauro Romero MD Attending Clinician BRYON MAST Attending Clinician Unavailable MD BRYON MAST Attending Clinician Unavailable BRYON MAST Admitting Clinician Unavailable MD BRYON MAST Admitting Clinician Unavailable Payers Payer Name Policy Type Policy Number Effective Date Expiration Date Renato trinh BONNYMAN [id number] 2022 HEALTHCARE 00:00:00 HEALTH [place] PPO [place] MEDICARE C1 [id number] [facility] Spirit [facility] HUMANA MEDICARE C1 [id number] [facility] Problems Condition Condition Condition Status Onset Resolution Last Treating Co mments Source Name Details Category Date Date Treatment Clinician Date 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 2-18 [facility] brain of brain 00:00: Hospit a 00 l 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 1-29 st of brain of brain 00:00: Hospit a 00 l Essential Benign Problem Common hypertensi essential Spi rit on HTN - [facility] [id number] Dorsalgia, Problem Co mmon unspecifie Spirit d - [facility] [id number] Dyslipidem Problem Co mmon ia Spirit - [facility] [id number] Other Problem Common chronic Spirit pain - [facility] [id number] Open-angle Problem Com mon glaucoma, Spirit unspecifie - CHI d glaucoma [facility] unspecifie Medica l d Center laterality , unspecifie d open-angle glaucoma type [id number] LIZA Problem Common (generaliz [facility] ed anxiety - CHI disorder) [facility] [id number] 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 - CHI joints, St unspecifie [facility] d Medical osteoarthr Center itis type [id number] Trochanter Problem C ommon ic Spirit bursitis, - CHI left hip [facility] [id number] Current Problem Common moderate Spirit episode of - CHI major [facility] without Center prior episode [id number] Pain, Problem Commo n joint, Spirit knee, left - [facility] [id number] 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 [facility] y, without Medica l long-term Center current use of insulin, macular edema presence unspecifie d, unspecifie d laterality , unspecifie d retinopath y severity [id number] Leukocytos Problem Co mmon is, Spirit unspecifie - CHI d type [facility] [id number] Personal Problem Comm on history of Spirit other - CHI benign [facility] [id number] Primary Problem Comm on osteoarthr Spirit itis of - CHI left knee [facility] [id number] Arthritis Problem Co mmon [id number] of knee, Spirit left - [facility] Allergies, Adverse Reactions, Alerts Allergy Allergy Status Severity Reaction(s) Onset Inactive Treating Comm ents Source Name Type Date Date Clinician NO KNOWN Drug Active Univers ALLERGIE Class ity of S [facility] Family History Family Member Diagnosis Comments Start Date Stop Date Source Natural father [facility] Natural mother Diabetes [facility] Social History Social Habit Start Date Stop Date Quantity Comments Source History of Tobacco [facility] Spirit - Use [facility] Gender identity [facility] Sexual orientation [facility] History of Social 2022-07-15 2022-07-[address] function 00:00:00 00:00:00 Hospital Exposure to 2022-05-04 2022-05-14 Not sure University SARS-CoV-2 (event) 00:00:00 12:19:00 [facility] Tobacco use and 2020-10-10 2020-10-10 Smokeless [facility] exposure 00:00:00 00:00:00 tobacco non-user Alcohol intake 2020-07-09 2020-07-09 Lifetime Buddhist 00:00:00 00:00:00 non-drinker Hospital (finding) Sex Ass[birth year] At [birth year] [facility] 00:00:00 00:00:00 Hospital Smoking Status Start Date Stop Date Source Tobacco [facility] - [facility] Medications Ordered Filled Start Stop Current Ordering Indication Dosage Frequency Signature Comments Components Source Medication Medication Date Date Medication? Clinician (SIG) Name Name Lisinopril/ Lisinopril/ 2021- No Lisinopril HCTZ HCTZ 12-01 /HCTZ 12. 20/12.5 00:00: 00:00 2012.5 00 :00 levETIRAcet 2020-04 Yes TOME AIDE Me thodi am (KEPPRA) 2-[address] 750 MG 00:00: DOS VECES Hospit a tablet 00 AL HUMBERTO l metFORMIN Yes 1000mg Take 1,000 UT (Glucophage 7-01 mg by Health ) 1000 MG 13:25: mouth 2 tablet 49 (two) times a day with meals. lovastatin Yes 10mg Take 10 mg U T (Mevacor) 7-01 by mouth Health 10 MG 13:25: every tablet 49 night. lisinopril Yes 20mg QD Take 20 mg U T 20 MG 7-01 by mouth 1 Health tablet 13:25: (one) time 49 each day. levETIRAcet 0 Yes Take by UT am (Keppra) 7-01 mouth. Health 750 MG 13:25: tablet 49 metFORMIN 0 Yes 1000mg Take 1,000 UT (Glucophage 7-01 mg by Health ) 1000 MG 13:25: mouth 2 tablet 49 (two) times a day with meals. lovastatin 0 Yes 10mg Take 10 mg U T (Mevacor) 10-10 by mouth Health 10 MG 13:25: every tablet 49 night. lisinopril 0 Yes 20mg QD Take 20 mg U T 20 MG 10-10 by mouth 1 Health tablet 13:25: (one) time 49 each day. levETIRAcet 0 Yes Take by UT am (Keppra) 7-01 mouth. Health 750 MG 13:25: tablet 49 Bupivicaine Bupivicaine 0 No 2.5mg Common Rogers Rogers 4-22 Spirit 00:00[facility] 0 No 40mg Common (Triamcinol (Triamcinol 4-22 S pirit one) one) 00:00: - CHI 00 [facility] Bupivicaine Bupivicaine 2020-0 No 2.5mg Common Rogers Rogers 4-22 Spirit 00:00: - [facility] No 40mg Common (Triamcinol (Triamcinol 4-22 S pirit one) one) 00:00: - CHI 00 [facility] Bupivicaine Bupivicaine 2020-0 No 2.5mg Common Rogers Rogers 4-22 Spirit 00:00: - CHI 00 [facility] Kenalog Kenalog 0 No 40mg Common (Triamcinol (Triamcinol 4-22 S pirit one) one) 00:00: - CHI 00 [facility] Bupivicaine Bupivicaine 2020-0 No 2.5mg Common Rogers Rogers 4-22 Spirit 00:00: - CHI 00 [facility] Kenalog Kenalog 2020-0 No 40mg Common (Triamcinol (Triamcinol 4-22 S pirit one) one) 00:00: - CHI 00 [facility] Bupivicaine Bupivicaine 0 No 2.5mg Common Rogers Rogers 4-22 Spirit 00:00: - [facility] Kenalog Kenalog 0 No 40mg Common (Triamcinol (Triamcinol 4-22 S pirit one) one) 00:00: - [facility] Bupivicaine Bupivicaine 2020-0 No 2.5mg Common Rogers Rogers 4-22 Spirit 00:00: - [facility] Kenalog Kenalog 0 No 40mg Common (Triamcinol (Triamcinol 4-22 S pirit one) one) 00:00: - [facility] Bupivicaine Bupivicaine 0 No 2.5mg Common Rogers Rogers 4-22 Spirit 00:00: - [facility] Kenalog Kenalog 0 No 40mg Common (Triamcinol (Triamcinol 4-22 S pirit one) one) 00:00: - [facility] Bupivicaine Bupivicaine 0 No 2.5mg Common Rogers Rogers 4-22 Spirit 00:00: - [facility] Franciscoalog Kenalog 0 No 40mg Common (Triamcinol (Triamcinol 4-22 S pirit one) one) 00:00: - CHI 00 [facility] metFORMIN 0 Yes 1000mg Q.5D Take 1,000 Methodi (GLUCOPHAGE 2-[address] ) 1,000 mg 16:14: mouth 2 Hosp adilson tablet 22 (two) l times a day with meals. lovastatin Yes 10mg QD Take 10 mg M ethodi (MEVACOR) 2-[address] 10 MG 16:14: daily. AM Hospita tablet 22 l timolol 0 Yes 1[drp] Q.5D 1 drop 2 Meth umang (TIMOPTIC) 2-18 (two) st 0.25 % 16:14: times a Hospita ophthalmic 22 day. l solution brimonidine 0 Yes 1[drp] Q.[id number] Administer Methodi (ALPHAGAN 2-18 [id number] P) 0.1 % 16:14: 3D both eyes Hosp adilson drops 22 every 8 l (eight) hours. Rocklatan Yes Methodi 0.02-0.005 1-13 st % drops 00:00: Hospita 00 l dorzolamide 0 Yes Method i -timoloL 1-04 st (COSOPT) 00:00: Hospita 22.3-6.8 00 l mg/mL ophthalmic solution latanoprost Yes Method i (XALATAN) 04 st 0.005 % 00:00: Hospita ophthalmic 00 l solution brimonidine Yes Method i (ALPHAGAN) 04-15 st 0.2 % 00:00: Hospita ophthalmic 00 l solution levETIRAcet levETIRAcet No 1{table BID levETIRAce am 750 MG am 750 MG t} mchugh 750 MG Lovastatin Lovastatin No 1{table QD Lovastatin 10 MG 10 MG t_with_ 10 MG a_meal} Lisinopril Lisinopril No 1{table Lisinopril 20 MG 20 MG t} 20 MG Co Enzyme Co Enzyme No Co Enzyme Q-10 Q-10 Q-10 Lisinopril Lisinopril No 1{table Lisinopril 20 MG 20 MG t} 20 MG levETIRAcet levETIRAcet No 1{table BID levETIRAce am 750 MG am 750 MG t} mchugh 750 MG Lovastatin Lovastatin No 1{table QD Lovastatin 20 MG 20 MG t_with_ 20 MG a_meal} Metformin Metformin No 1{table BID Metformin HCl 1000 MG HCl 1000 MG t_with_ HCl 1000 meals} MG Lovastatin Lovastatin No 1{table QD Lovastatin 20 MG 20 MG t_with_ 20 MG a_meal} Lisinopril Lisinopril No Lisinopril 20 MG 20 MG 20 MG Lovastatin Lovastatin No Lovastatin 10 MG 10 MG 10 MG Co Enzyme Co Enzyme No Co Enzyme Q-10 Q-10 Q-10 levETIRAcet levETIRAcet No 1{table BID levETIRAce am 750 MG am 750 MG t} mchugh 750 MG metFORMIN metFORMIN No metFORMIN HCl 1000 MG HCl 1000 MG HCl 1000 MG Lovastatin Lovastatin No 1{table QD Lovastatin 20 MG 20 MG t_with_ 20 MG a_meal} Lisinopril Lisinopril No Lisinopril 20 MG 20 MG 20 MG Lovastatin Lovastatin No Lovastatin 10 MG 10 MG 10 MG Co Enzyme Co Enzyme No Co Enzyme Q-10 Q-10 Q-10 levETIRAcet levETIRAcet No 1{table BID levETIRAce am 750 MG am 750 MG t} mchugh 750 MG metFORMIN metFORMIN No metFORMIN HCl 1000 MG HCl 1000 MG HCl 1000 MG Lisinopril Lisinopril No 1{table Lisinopril 20 MG 20 MG t} 20 MG levETIRAcet levETIRAcet No 1{table BID levETIRAce am 750 MG am 750 MG t} mchugh 750 MG Lovastatin Lovastatin No 1{table QD Lovastatin 20 MG 20 MG t_with_ 20 MG a_meal} metFORMIN metFORMIN No metFORMIN HCl 1000 MG HCl 1000 MG HCl 1000 MG Co Enzyme Co Enzyme No Co Enzyme Q-10 Q-10 Q-10 Metformin Metformin No 1{table BID Metformin HCl 1000 MG HCl 1000 MG t_with_ HCl 1000 meals} MG Lisinopril Lisinopril No Lisinopril 20 MG 20 MG 20 MG Lovastatin Lovastatin No Lovastatin 10 MG 10 MG 10 MG Lisinopril Lisinopril No 1{table Lisinopril 20 MG 20 MG t} 20 MG levETIRAcet levETIRAcet No 1{table BID levETIRAce am 750 MG am 750 MG t} mchugh 750 MG Lovastatin Lovastatin No 1{table QD Lovastatin 20 MG 20 MG t_with_ 20 MG a_meal} metFORMIN metFORMIN No metFORMIN HCl 1000 MG HCl 1000 MG HCl 1000 MG Co Enzyme Co Enzyme No Co Enzyme Q-10 Q-10 Q-10 Metformin Metformin No 1{table BID Metformin HCl 1000 MG HCl 1000 MG t_with_ HCl 1000 meals} MG Lisinopril Lisinopril No Lisinopril 20 MG 20 MG 20 MG Lovastatin Lovastatin No Lovastatin 10 MG 10 MG 10 MG Lovastatin Lovastatin No 1{table QD Lovastatin 20 MG 20 MG t_with_ 20 MG a_meal} Metformin Metformin No 1{table BID Metformin HCl 1000 MG HCl 1000 MG t_with_ HCl 1000 meals} MG Lovastatin Lovastatin No 1{table QD Lovastatin 20 MG 20 MG t_with_ 20 MG a_meal} Metformin Metformin No 1{table BID Metformin HCl 1000 MG HCl 1000 MG t_with_ HCl 1000 meals} MG Lisinopril- Lisinopril- No Lisinopril hydroCHLORO hydroCHLORO -hydroCHLO thiazide thiazide ROthiazide 20-12.5 MG 20-12.5 MG 20-12.5 MG Lovastatin Lovastatin No Lovastatin 10 MG 10 MG 10 MG Lisinopril- Lisinopril- No Lisinopril hydroCHLORO hydroCHLORO -hydroCHLO thiazide thiazide ROthiazide 20-12.5 MG 20-12.5 MG 20-12.5 MG Lovastatin Lovastatin No 1{table QD Lovastatin 20 MG 20 MG t_with_ 20 MG a_meal} Lovastatin Lovastatin No Lovastatin 10 MG 10 MG 10 MG Augmentin Augmentin No 1{table Augmentin 500-125 MG 500-125 MG t} 500-125 MG Metformin Metformin No 1{table BID Metformin HCl 1000 MG HCl 1000 MG t_with_ HCl 1000 meals} MG Lisinopril- Lisinopril- No Lisinopril hydroCHLORO hydroCHLORO -hydroCHLO thiazide thiazide ROthiazide 20-12.5 MG 20-12.5 MG 20-12.5 MG Lovastatin Lovastatin No 1{table QD Lovastatin 20 MG 20 MG t_with_ 20 MG a_meal} Lovastatin Lovastatin No Lovastatin 10 MG 10 MG 10 MG Augmentin Augmentin No 1{table Augmentin 500-125 MG 500-125 MG t} 500-125 MG Metformin Metformin No 1{table BID Metformin HCl 1000 MG HCl 1000 MG t_with_ HCl 1000 meals} MG Co Enzyme Co Enzyme No Co Enzyme Q-10 Q-10 Q-10 Lisinopril Lisinopril No 1{table Lisinopril 20 MG 20 MG t} 20 MG Metformin Metformin No 1{table BID Metformin HCl 1000 MG HCl 1000 MG t_with_ HCl 1000 meals} MG Lovastatin Lovastatin No 1{table QD Lovastatin 20 MG 20 MG t_with_ 20 MG a_meal} Lovastatin Lovastatin No 1{table QD Lovastatin 10 MG 10 MG t_with_ 10 MG a_meal} levETIRAcet levETIRAcet No 1{table BID levETIRAce am 750 MG am 750 MG t} mchugh 750 MG Co Enzyme Co Enzyme No Co Enzyme Q-10 Q-10 Q-10 Lisinopril Lisinopril No 1{table Lisinopril 20 MG 20 MG t} 20 MG Metformin Metformin No 1{table BID Metformin HCl 1000 MG HCl 1000 MG t_with_ HCl 1000 meals} MG Lovastatin Lovastatin No 1{table QD Lovastatin 20 MG 20 MG t_with_ 20 MG a_meal} Lovastatin Lovastatin No 1{table QD Lovastatin 10 MG 10 MG t_with_ 10 MG a_meal} levETIRAcet levETIRAcet No 1{table BID levETIRAce am 750 MG am 750 MG t} mchugh 750 MG Co Enzyme Co Enzyme No Co Enzyme Q-10 Q-10 Q-10 Lisinopril Lisinopril No 1{table Lisinopril 20 MG 20 MG t} 20 MG Metformin Metformin No 1{table BID Metformin HCl 1000 MG HCl 1000 MG t_with_ HCl 1000 meals} MG Lovastatin Lovastatin No 1{table QD Lovastatin 20 MG 20 MG t_with_ 20 MG a_meal} Lovastatin Lovastatin No 1{table QD Lovastatin 10 MG 10 MG t_with_ 10 MG a_meal} Immunizations Ordered Immunization Filled Immunization Date Status Commen ts Source Name Name Bupivicaine Rogers Bupivicaine Rogers 2020-08-01 Completed [facility] 11:56:00 [facility] Kenalog Kenalog 2020-08-01 Completed [facility] (Triamcinolone) (Triamcinolone) 11:55:00 [facility] Vital Signs Vital Name Observation Time Observation Value Comments Source height 2022-04-28 14:00:00 59 [in_i] [facility] weight 2022-04-28 14:00:00 118.0 [lb_av] Common [facility] temperature 2022-04-28 14:00:00 98.0 [degF] [facility] bmi 2022-04-28 14:00:00 23.83 kg/m2 [facility] oximetry 2022-04-28 14:00:00 97 % [facility] respiratory rate 2022-04-28 14:00:00 17 /min Comm on [facility] blood pressure 2022-04-28 14:00:00 138 mm[Hg] [facility] - systolic [facility] blood pressure 2022-04-28 14:00:00 75 mm[Hg] Common [facility] - diastolic [facility] height 2021-12-01 08:10:00 59 [in_i] Common [facility] weight 2021-12-01 08:10:00 115.7 [lb_av] Common [facility] temperature 2021-12-01 08:10:00 97.0 [degF] Common [facility] bmi 2021-12-01 08:10:00 23.37 kg/m2 [facility] oximetry 2021-12-01 08:10:00 96 % [facility] respiratory rate 2021-12-01 08:10:00 17 /min Comm on [facility] blood pressure 2021-12-01 08:10:00 148 mm[Hg] Common [facility] - systolic [facility] blood pressure 2021-12-01 08:10:00 84 mm[Hg] Common [facility] - diastolic [facility] height 2021-09-02 08:40:00 59 [in_i] Common [facility] weight 2021-09-02 08:40:00 118.9 [lb_av] [facility] temperature 2021-09-02 08:40:00 97.4 [degF] Common S [facility] bmi 2021-09-02 08:40:00 24.01 kg/m2 Common [facility] oximetry 2021-09-02 08:40:00 96 % Common [facility] respiratory rate 2021-09-02 08:40:00 17 /min Comm on [facility] blood pressure 2021-09-02 08:40:00 132 mm[Hg] Common [facility] - systolic [facility] blood pressure 2021-09-02 08:40:00 63 mm[Hg] Common [facility] - diastolic [facility] height 2021-09-02 09:00:00 59 [in_i] Common [facility] weight 2021-09-02 09:00:00 118.9 [lb_av] [facility] temperature 2021-09-02 09:00:00 97.4 [degF] Common [facility] bmi 2021-09-02 09:00:00 24.01 kg/m2 [facility] oximetry 2021-09-02 09:00:00 96 % [facility] respiratory rate 2021-09-02 09:00:00 17 /min Comm [facility] blood pressure 2021-09-02 09:00:00 132 mm[Hg] Common [facility] - systolic [facility] blood pressure 2021-09-02 09:00:00 63 mm[Hg] Common [facility] - diastolic [facility] height 2021-04-17 11:40:00 59 [in_i] Common [facility] weight 2021-04-17 11:40:00 120 [lb_av] [facility] temperature 2021-04-17 11:40:00 97.5 [degF] [facility] bmi 2021-04-17 11:40:00 24.23 kg/m2 [facility] S [facility] height 2020-12-02 13:15:00 59 [in_i] Common S [facility] weight 2020-12-02 13:15:00 117.9 [lb_av] [facility] bmi 2020-12-02 13:15:00 23.81 kg/m2 [facility] blood pressure 2020-12-02 13:15:00 134 mm[Hg] Common [facility] - systolic [facility] blood pressure 2020-12-02 13:15:00 78 mm[Hg] Common [facility] - diastolic [facility] Systolic blood 2020-10-10 17:03:00 117 mm[facility]Hg[facility] Diastolic blood 2020-10-10 17:03:00 68 mm[facility]Hg] [facility] Heart rate 2020-10-10 17:03:00 80 [facility] 2020-10-10 17:03:00 36.17 [facility] height 2020-10-10 17:03:00 154[facility]9 cm [facility] weight 2020-10-10 17:03:00 53[facility]071 [facility] BMI 2020-10-10 17:03:00 22.11 kg[facility]2 [facility] O[facility] saturation in 2020-10-10 17:03:00 98 /min [facility] Arterial blood by Pulse oximetry Procedures Procedure Date / Time Performed Performing Clinician [facility] e PHYSICIAN ORDERS 2022-05-14 06:01:00 Doctor Unassigned, No Unive [facility] Plan of Care Planned Activity Planned Date Details Comments Source Future Scheduled 2022-07-15 COVID-19 VACCINE (#1) [facility] Test 23:41:11 [code = COVID-19 VACCINE (#1)] Future Scheduled 2022-07-15 Hepatitis C screening [facility] Test 23:41:11 (procedure) [code = 526948759] Future Scheduled 2022-07-15 Screening for [facility] Test 23:41:11 malignant neoplasm of colon (procedure) [code = 205936972] Future Scheduled 2022-07-15 [facility]ING[facility]IN[facility] ([facility] 23:41:11 of 2) [code = SHINGLES VACCINES (1 of 2)] Future Scheduled 2022-07-15 65+ [facility] [facility] Test 23:41:11 VACCINE (1 - PCV) [code = 65+ PNEUMOCOCCAL VACCINE (1 - PCV)] Future Scheduled 2022-07-15 INFLUENZA [facility]ACCINE [facility] Test 23:41:11 [code = INFLUENZA VACCINE] Encounters Start End Encounter Admission Attending Care Care Encounter Source Date/Time Date/Time Type Type Clinicians Facility Department ID 2022-09-14 [facility] [id number] Common 09:05:00 [facility] [address] [facility] 2022-05-19 Outpatient Amaro, STLMLC STLMLC [id number] Common 09:17:01 Gio [address] [facility] 2022-04-24 Outpatient Amaro, STLMLC STLMLC [id number] Common 08:37:00 Gio [facility] 2022-02-27 Outpatient Amaro, STLMLC STLMLC [id number] Common 10:11:00 Gio [facility] 2021-11-28 Outpatient Amaro, STLMLC STLMLC [id number] Common 14:46:00 Gio [facility] 2021-08-27 Outpatient Amaro, STLMLC STLMLC [id number] Common 10:20:29 Gio [facility] 2021-07-18 Outpatient Amaro, STLMLC STLMLC [id number] Common 11:22:01 Gio [facility] 2021-05-07 Outpatient Amaro, STLMLC STLMLC [id number] Common 14:33:43 Gio [facility] 2021-05-07 Outpatient Amaro, STLMLC STLMLC [id number] Common 13:43:45 Gio [facility] 2021-05-07 Outpatient Amaro, STLMLC STLMLC [id number] Common 13:39:16 Gio [address] [facility] 2021-05-07 Outpatient Amaro, STLMLC STLMLC [id number] Common 13:36:18 Gio [facility] 2021-05-07 Outpatient Amaro, STLMLC STLMLC [id number] Common 12:55:55 Gio [facility] 2021-05-07 Outpatient Amaro, STLMLC STLMLC [id number] Common 12:55:10 Gio [facility] 2021-05-07 Outpatient Amaro, STLMLC STLMLC [id number] Common 12:54:14 Gio 230[address] [facility] 2021-05-07 Outpatient Amaro, STLMLC STLMLC [id number] Common 12:45:36 Gio [address] [facility] 2021-05-07 Outpatient Amaro, STLMLC STLMLC [id number] Common 12:34:04 Gio [address] [facility] 2021-05-07 Outpatient Amaro, STLMLC STLMLC [id number] Common 12:33:12 Gio 55[address] [facility] 2021-05-07 Outpatient Amaro, STLMLC STLMLC [id number] Common 12:32:09 Gio 57[address] [facility] 2021-05-07 Outpatient Amaro, STLMLC STLMLC [id number] Common 12:11:08 Gio 95[address] [facility] 2021-05-07 Outpatient Amaro, STLMLC STLMLC [id number] Common 12:00:19 Gio 20396 [facility] 2021-05-07 Outpatient Amaro, STLMLC STLMLC [id number] Common 11:59:48 Gio 22[address] [facility] 2021-05-07 Outpatient LongRosita STLMLC STLMLC [id number] Common 11:56:27 [address] [facility] 2022-05-14 2022-05-14 Manager [employer] 2, Adc Lab [facility] [id number] Univers 11:45:00 12:00:00 Visit Azam Lerner [id number] ity [facility] [id number] [id number] [address] 2022-05-14 2022-05-14 [facility] [id number] Univers 11:45:00 11:45:00 AZAM [place] [facility] 2022-05-14 2022-05-14 Orders Doctor [place] [id number] Univers 00:00:00 00:00:00 Only Unassigned, CAT [id number] [facility] [id number] Andrew as [id number] [place] [address] [address] 2022-05-04 2022-05-04 (TEL) STLMLC STLMLC [id number] Co mmon 00:00:00 00:00:00 Spirit - [facility] 2022-04-28 2022-04-28 OFFICE STLMLC STLMLC [id number] Co mmon 00:00:00 00:00:00 VISIT EST Spir it PT LEVEL 3 - [facility] 2022-04-22 2022-04-22 (TEL) STLMLC STLMLC [id number] Co mmon 00:00:00 00:00:00 Spirit [facility] 2021-12-01 2021-12-01 OFFICE STLMLC STLMLC [id number] Co mmon 00:00:00 00:00:00 VISIT Spirit ESTAB PT - CHI LEVEL 4 [facility] 2021-09-02 2021-09-02 OFFICE STLMLC STLMLC [id number] Co mmon 00:00:00 00:00:00 VISIT [facility] ESTAB PT - CHI LEVEL 4 [facility] 2021-09-02 2021-09-02 SUB ANNUAL STLMLC STLMLC [id number] Common 00:00:00 00:00:00 MCR [facility] WELLNESS - VISIT [facility] 2021-08-27 2021-08-27 (TEL) STLMLC STLMLC [id number] Co mmon 00:00:00 00:00:00 [facility] 2021-07-23 2021-07-23 (TEL) STLMLC STLMLC [id number] Co mmon 00:00:00 00:00:00 Spirit - [facility] 2021-04-17 2021-04-17 (TELEAUD) STLMLC STLMLC [id number] Common 00:00:00 00:00:00 AUDIO Spirit TELEMEDICI - CHI NE [facility] 2021-04-02 2021-04-02 (TEL) STLMLC STLMLC [id number] Co mmon 00:00:00 00:00:00 Spirit - [facility] 2021-02-12 2021-02-12 (TEL) STLMLC STLMLC [id number] Co mmon 00:00:00 00:00:00 [facility] 2020-12-02 2020-12-02 OFFICE STLMLC STLMLC [id number] Co mmon 00:00:00 00:00:00 VISIT [facility] LEVEL 4 [facility] 2020-11-19 2020-11-19 Outpatient STLMLC STLMLC [id number] Common 00:00:00 00:00:00 [facility] 2020-10-17 2020-10-17 Outpatient STLMLC STLMLC [id number] Common 00:00:00 00:00:00 [facility] 2020-10-15 2020-10-15 Outpatient STLMLC STLMLC [id number] Common 00:00:00 00:00:00 [facility] 2020-10-15 2020-10-15 Outpatient [facility] ST[facility]C [id number] Common 00:00:00 00:00:00 [facility] 2020-10-10 2020-10-10 Office [facility] [id number] [place] 11:56:31 12:26:31 Visit [facility] [id number] H [facility] [id number] 2020-10-01 2020-10-01 Outpatient [facility] ST[facility] [id number] Common 00:00:00 00:00:00 [facility] 2020-08-12 2020-08-12 Outpatient [facility] ST[facility] [id number] Common 00:00:00 00:00:00 [facility] 2020-08-05 2020-08-05 Outpatient [facility] ST[facility] [id number] Common 00:00:00 00:00:00 [facility] 2020-08-05 2020-08-05 Outpatient [facility] ST[facility] [id number] Common 00:00:00 00:00:00 [facility] 2020-07-09 2020-07-09 Outpatient KEZIA [facility] [id number] [address] [place] [address] 00:00:00 00:00:00 BRYON [address] 2020-07-09 2020-07-09 Outpatient KEZIA, [facility] [id number] [place] 00:00:00 00:00:00 BRYON [address] 2020-06-19 2020-06-19 Outpatient [facility] [id number] [place] 00:00:00 00:00:[address] 2020-06-12 2020-06-12 Outpatient [facility] [id number] [place] 00:00:00 00:00:[address] 2020-05-22 2020-05-30 Inpatient KEZIA, [facility] [id number] [place] 00:00:00 00:00:00 BRY[place] [address] 2020-05-20 2020-05-20 Outpatient KEZIA, [facility] [id number] [place] 00:00:00 00:00:00 [facility] [address] 2020-05-20 2020-05-20 Outpatient KEZIA, [facility] [id number] [place] 00:00:00 00:00:00 [facility] [address] 2020-05-20 2020-05-20 Outpatient KEZIA, [facility] [id number] [place] 00:00:00 00:00:00 [facility] [address] 2020-05-17 2020-05-17 Outpatient KEZIA, [facility] [id number] [place] 00:00:00 00:00:00 BRY[facility] [address] 2020-05-17 2020-05-17 Outpatient KEZIA, [facility] [id number] [place] 00:00:00 00:00:00 BRYON [address] 2020-05-17 2020-05-17 Outpatient KEZIA, [facility] [id number] [place] 00:00:00 00:00:00 BRY[facility] [address] 2020-05-15 2020-05-15 Outpatient KEZIA, [facility] [id number] [place] 00:00:00 00:00:00 BRY[facility] [address] 2020-05-15 2020-05-15 Outpatient KEZIA, [facility] [id number] [place] 00:00:00 00:00:00 [facility] [address] 2020-05-10 2020-05-10 Outpatient KEZIA [facility] [id number] [place] 00:00:00 00:00:00 BRYON 566 [facility] 2020-05-10 2020-05-10 Outpatient KEZIA [facility] [id number] [place] 00:00:00 00:00:00 BRYON 945 [facility] 2020-05-09 2020-05-09 Outpatient KEZIA [facility] [id number] [place] 00:00:00 00:00:00 BRYON 273 Method i Results Test Description Test Time Test Comments Results Result Comments Source SARS-CoV-2 (COVID-19) RNA [Presence] in Respiratory sp ecimen by 2020-05-20 19:51:35 WILLARD with probe detection Test Item Value Reference Range Interpretation Comme nts SARS-CoV-2 (COVID-19) RNA [Presence] in Respiratory Not detected No t-Detected specimen by WILLARD with probe detection (test code = 84487-8) [place]
--- NOTE | 2022-09-14 12:58 | RAD REPORT ---
EXAM DESCRIPTION: CT - CTHCSPWOC - 09/14/2022 12:44 pm CLINICAL HISTORY: Trauma, head and neck injury. VISUAL DISTURBANCES COMPARISON: Head Brain Wo Cont dated 08/09/2017 TECHNIQUE: Axial 5 mm thick images of the head were obtained. Axial 2 mm thick images of the cervical spine were obtained with sagittal and coronal reconstruction images generated and reviewed. All CT scans are performed using dose optimization technique as appropriate and may include automated exposure control or mA/KV adjustment according to patient size. FINDINGS: CT HEAD WITHOUT CONTRAST: No acute hemorrhage, hydrocephalus or extra-axial collection is identified.3 cm area of gliosis left superior frontal likely related to previous intervention. The paranasal sinuses and mastoids are clear.Evidence of prior left craniotomy. CT CERVICAL SPINE WITHOUT CONTRAST: No fracture or subluxation.Moderate lower cervical degenerative changes.No prevertebral soft tissues swelling is identified. IMPRESSION: No acute intracranial or cervical spine findings. Moderate lower cervical spondylosis.
--- NOTE | 2022-09-14 14:26 | EDPHYS ---
Physician Documentation [facility] Name: Mariia Egan Age: 76 yrs Sex: Female : 1945 Arrival Date: 09/14/2022 Time: 12:05 Bed 12 Private MD: Prem [facility] ED Physician Cecil Bentley HPI: 09/14 12:38 This 76 yrs old Female presents to ER via Ambulatory with complaints of Vision snw Problem, Head Injury-Adult - <2 mths. 12:38 The patient or guardian reports tenderness. The complaints affect the top of head and snw right occipital area. Context of injury: resulted from Pt had remote neurosurgery, struck occiput and front of head twice in the past two weeks. Onset: The symptoms/episode began/occurred acutely. Associated signs and symptoms: Pertinent positives: wavy vision to left eye. Severity of symptoms: At their worst the symptoms were moderate. The patient has experienced a previous episode. Historical: - Allergies: 12:26 No Known Allergies; mb9 - Home Meds: 12:26 metformin 500 mg Oral tab 1 tab [Active]; lovastatin 10 mg Oral tab 1 tab once daily mb9 [Active]; lisinopril 5 mg Oral tab 1 tab once daily [Active]; - PMHx: 12:26 cervical cancer; Diabetes - NIDDM; Hyperlipidemia; Hypertension; mb9 - PSHx: 12:26 brain tumor; mb9 - Immunization history:: Adult Immunizations up to date. - Social history:: Smoking status: Patient denies any tobacco usage or history of. ROS: 12:36 Constitutional: Negative for fever, chills, and weight loss, ENT: Negative for injury, snw pain, and discharge, Neck: Negative for injury, pain, and swelling, Cardiovascular: Negative for chest pain, palpitations, and edema, Respiratory: Negative for shortness of breath, cough, wheezing, and pleuritic chest pain, Abdomen/GI: Negative for abdominal pain, nausea, vomiting, diarrhea, and constipation, Back: Negative for injury and pain, : Negative for injury, bleeding, discharge, and swelling, MS/Extremity: Negative for injury and deformity, Skin: Negative for injury, rash, and discoloration. 12:36 Eyes: Positive for left eye with waves in vision. 12:36 Neuro: Positive for struck head x 2 on cabinet. Exam: 12:36 Constitutional: This is a well developed, well nourished patient who is awake, alert, snw and in no acute distress. Head/Face: Normocephalic, atraumatic. ENT: Nares patent. No nasal discharge, no septal abnormalities noted. Tympanic membranes are normal and external auditory canals are clear. Oropharynx with no redness, swelling, or masses, exudates, or evidence of obstruction, uvula midline. Mucous membranes moist. Neck: Trachea midline, no thyromegaly or masses palpated, and no cervical lymphadenopathy. Supple, full range of motion without nuchal rigidity, or vertebral point tenderness. No Meningismus. Chest/axilla: Normal chest wall appearance and motion. Nontender with no deformity. No lesions are appreciated. 12:36 Cardiovascular: Regular rate and rhythm with a normal S1 and S2. No gallops, murmurs, or rubs. Normal PMI, no JVD. No pulse deficits. Respiratory: Lungs have equal breath sounds bilaterally, clear to auscultation and percussion. No rales, rhonchi or wheezes noted. No increased work of breathing, no retractions or nasal flaring. Abdomen/GI: Soft, non-tender, with normal bowel sounds. No distension or tympany. No guarding or rebound. No evidence of tenderness throughout. Back: No spinal tenderness. No costovertebral tenderness. Full range of motion. Skin: Warm, dry with normal turgor. Normal color with no rashes, no lesions, and no evidence of cellulitis. MS/ Extremity: Pulses equal, no cyanosis. Neurovascular intact. Full, normal range of motion. Psych: Awake, alert, with orientation to person, place and time. Behavior, mood, and affect are within normal limits. 12:36 Eyes: Periorbital structures: appear normal, Pupils: no acute changes, EOMI. 12:36 Neuro: Orientation: is normal, Mentation: is normal, Cranial nerves: grossly normal, Motor: is normal, Sensation: is normal, seizure activity, is not displayed by the patient, Abnormal movements: there are no abnormal movements. Vital Signs: 12:21 BP 134 / 70; Pulse 79; Resp 17; Temp 98.6; Pulse Ox 98% on R/A; Weight 58.06 kg; Height mb9 5 ft. 0 in. ; 14:06 BP 162 / 76 LA Supine (auto/reg); Pulse 67; Resp 16; Pulse Ox 100% on R/A; nj1 14:06 BP 154 / 84 LA Sitting (auto/reg); Pulse 72; nj1 14:06 BP 163 / 89 LA Standing (auto/reg); Pulse 77; nj1 12:21 Body Mass Index 25.00 (58.06 kg, 152.4 cm) mb9 [place] Coma Score: 12:21 Eye Response: spontaneous(4). Motor Response: obeys commands(6). Verbal Response: mb9 oriented(5). Total: 15. 12:38 Eye Response: spontaneous(4). Motor Response: obeys commands(6). Verbal Response: snw oriented(5). Total: 15. 14:27 Eye Response: spontaneous(4). Motor Response: obeys commands(6). Verbal Response: snw oriented(5). Total: 15. MDM: 12:35 Patient medically screened. snw 14:27 Differential diagnosis: Contusion of Intracranial bleed- Tumor, retinal detachment. snw Data reviewed: vital signs, nurses notes, radiologic studies. Historians other than the Patient: Daughter/Son: Daughter. Counseling: I had a detailed discussion with the patient and/or guardian regarding: the historical points, exam findings, and any diagnostic results supporting the discharge/admit diagnosis, radiology results, the need for outpatient follow up, for definitive care, to return to the emergency department if symptoms worsen or persist or if there are any questions or concerns that arise at home. Response to treatment: There is no appreciated change of the patient's symptoms at this time. Special discussion: Based on the history and exam findings, there is no indication for further emergent testing or inpatient evaluation. I discussed with the patient/guardian the need to see the opthamologist for further evaluation of the symptoms, I discussed with the patient/guardian the need to see the primary care provider for further evaluation of the symptoms. 09/14 12:34 Order name: CT Head C Spine; Complete Time: 13:02 snw 09/14 13:43 Order name: Orthostatics; Complete Time: 14:17 snw Administered Medications: No medications were administered Disposition: 15:48 Co-signature as Attending Physician, Cecil Bentley MD I reviewed the patient's care rt provided by the Advanced Practice Provider and agree with the diagnosis and treatment plan. Disposition Summary: 09/14/22 14:26 Discharge Ordered Location: Home snw Condition: Stable snw Diagnosis - Other visual disturbances snw - Unspecified injury of head, initial encounter snw Followup: snw - With: Emergency Department - When: As needed - Reason: Worsening of condition Followup: snw - With: Gio Amaro, DO - When: 1 - 2 days - Reason: Recheck today's complaints, Continuance of care, Re-evaluation by your physician Discharge Instructions: - Discharge Summary Sheet snw - Head Injury, Adult snw - Visual Disturbances snw Forms: - Medication Reconciliation Form snw - Thank You Letter snw - Antibiotic Education snw - Prescription Opioid Use snw Signatures: Dispatcher [employer] EDMS Alice Benito, MICHELLE-C CIVIL ENGINEERING DIRECTOR-Csnw Maria T Fish RN RN mb9 Cecil Bentley MD MD rt
--- NOTE | 2022-09-14 14:26 | ER ---
Nurse's Notes [facility] Name: Mariia Egan Age: 76 yrs Sex: Female : 1945 Arrival Date: 09/14/2022 Time: 12:05 Bed 12 Private MD: Gio Amaro Diagnosis: Other visual disturbances;Unspecified injury of head, initial encounter Presentation: 09/14 12:21 Chief complaint: Patient's son or daughter states: "she hit her right samaritan 6 months mb9 ago and 1 month ago she hit left side of head while bending down to grab soap. Last month, she started having changes in vision the left eye that is wavy in the middle. She doesn't see stars or have blurry vision. She called her Dr. Amaro today and he told her to come here. 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 Coronavirus screen: Vaccine status: Patient reports receiving the 2nd dose of the covid vaccine. Ebola Screen: No symptoms or risks identified at this time. Mechanism of Injury: resulted from impacting a hard surface. Initial Sepsis Screen: Does the patient meet any 2 criteria? No. Patient's initial sepsis screen is negative. Does the patient have a suspected source of infection? No. Patient's initial sepsis screen is negative. Risk Assessment: Do you want to hurt yourself or someone else? Patient reports no desire to harm self or others. 12:21 Method Of Arrival: Ambulatory mb9 12:21 Acuity: JUAN 3 mb9 13:55 Onset of symptoms was July 2022. nj1 Triage Assessment: 12:28 General: Appears in no apparent distress. Behavior is calm, cooperative, appropriate mb9 for age. Pain: Denies pain. EENT:. Neuro: [place] Agitation-Sedation Scale (RASS): 0 - Alert and Calm Level of Consciousness is awake, alert, obeys commands, Oriented to person, place, time, situation, Appropriate for age Pupils are PERRLA, Reports wavy vision in left eye. Cardiovascular: Patient's skin is warm and dry. Respiratory: Airway is patent Respiratory effort is even, unlabored, Respiratory pattern is regular, symmetrical. GI: Patient currently denies nausea, vomiting. Derm: Skin is pink, warm \\T\\ dry. Musculoskeletal: Range of motion: intact in all extremities. Historical: - Allergies: 12:26 No Known Allergies; mb9 - Home Meds: 12:26 metformin 500 mg Oral tab 1 tab [Active]; lovastatin 10 mg Oral tab 1 tab once daily mb9 [Active]; lisinopril 5 mg Oral tab 1 tab once daily [Active]; - PMHx: 12:26 cervical cancer; Diabetes - NIDDM; Hyperlipidemia; Hypertension; mb9 - PSHx: 12:26 brain tumor; mb9 - Immunization history:: Adult Immunizations up to date. - Social history:: Smoking status: Patient denies any tobacco usage or history of. Screenin:40 [facility] ED Fall Risk Assessment (Adult) History of falling in the last 3 months, nj1 including since admission No falls in past 3 months (0 pts) Confusion or Disorientation No (0 pts) Intoxicated or Sedated No (0 pts) Impaired Gait No (0 pts) Mobility Assist Device Used Yes (1 pt) Altered Elimination No (0 pt) Score/Fall Risk Level 0 - 2 = Low Risk Oriented to surroundings, Maintained a safe environment, Hourly rounding (assess needs \\T\\ fall precautionary measures) done. 13:40 Abuse screen: Denies threats or abuse. Denies injuries from another. Nutritional [facility] screening: No deficits noted. Tuberculosis screening: No symptoms or risk factors identified. Assessment: 13:40 Reassessment: Patient appears in no apparent distress at this time. Patient and/or nj1 family updated on plan of care and expected duration. Pain level reassessed. Patient is alert, oriented x 3, equal unlabored respirations, skin warm/dry/pink. Vital Signs: 12:21 BP 134 / 70; Pulse 79; Resp 17; Temp 98.6; Pulse Ox 98% on R/A; Weight 58.06 kg; Height mb9 5 ft. 0 in. ; 14:06 BP 162 / 76 LA Supine (auto/reg); Pulse 67; Resp 16; Pulse Ox 100% on R/A; nj1 14:06 BP 154 / 84 LA Sitting (auto/reg); Pulse 72; nj1 14:06 BP 163 / 89 LA Standing (auto/reg); Pulse 77; nj1 12:21 Body Mass Index 25.00 (58.06 kg, 152.4 cm) 9 [place] Coma Score: 12:21 Eye Response: spontaneous(4). Motor Response: obeys commands(6). Verbal Response: mb9 oriented(5). Total: 15. 12:38 Eye Response: spontaneous(4). Motor Response: obeys commands(6). Verbal Response: snw oriented(5). Total: 15. 14:27 Eye Response: spontaneous(4). Motor Response: obeys commands(6). Verbal Response: snw oriented(5). Total: 15. ED Course: 12:12 Patient arrived in ED. am2 12:13 [facility] Ben[facility]C [facility] snw 12:13 Cecil Bentley MD is Attending Physician. snw 12:15 Gio Amaro DO is Private Physician. am2 12:26 Triage completed. mb9 12:28 Arm band placed on. mb9 12:47 CT Head C Spine In Process Unspecified. EDMS 13:33 Katie Alejandro, RN is Primary Nurse. nj1 13:40 Patient has correct armband on for positive identification. Bed in low position. Call nj1 light in reach. Adult w/ patient. 14:25 Gio Amaro DO is Referral Physician. snw 14:55 No provider procedures requiring assistance completed. nj1 14:55 Patient did not have IV access during this emergency room visit. nj1 Administered Medications: No medications were administered Medication: 14:55 VIS not applicable for this client. nj1 Outcome: 14:26 Discharge ordered by . snw 14:55 Discharged to home via wheelchair, with family. nj1 14:55 Condition: stable nj1 14:55 Discharge instructions given to patient, Instructed on discharge instructions, follow up and referral plans. Demonstrated understanding of instructions, follow-up care. 15:10 Patient left the ED. nj1 Signatures: Dispatcher [employer] EDMS Alice Benito FNP-C CERTIFIED ACTIVITIES DIRECTOR-Csnw Mallorie Garza am2 Maria T Fish RN RN mb9 Katie Alejandro, RN RN nj1 Corrections: (The following items were deleted from the chart) 13:54 13:40 Pain: Denies pain. nj1 nj1
[2022-09-14 15:16] VITALS: TEMP 98.6
[2022-09-14 15:18] VITALS: BP 163/89; O2SAT 100
== END 2022-09-14 15:10 | disposition home or self-care (01) ==
LOC: ER 12:05
DX: H53.8 Other visual disturbances (principal); S09.90XA Unspecified injury of head, initial encounter; I10 Essential (primary) hypertension; E11.9 Type 2 diabetes mellitus without complications; Z86.011 Personal history of benign neoplasm of the brain
CPT/HCPCS: 70450; 72125; 99283